=== PATIENT | male | born 1995 | race Caucasian/White ===

== ENCOUNTER 2017-04-25 08:57 | Emergency (ER) | payer MEDICAID ==
[~2017-04-25] VITALS: Ht 182.9 cm; Wt 95.0 kg
[2017-04-25] MEDS ORDERED: LIDOCAINE HCL 1% 20ML VIAL (Pyxis) INJ MC ONE (10:30)
[2017-04-25] MEDS ORDERED: IBUPROFEN 600MG TABLET PO ONE (10:30)
[2017-04-25] MEDS ORDERED: BACITRACIN ZINC OINT UDPKT TOP ONE (11:00)
[2017-04-25 11:15] VITALS: BP 137/84
== END 2017-04-25 11:33 | disposition home or self-care (01) ==
LOC: ER 09:10
DX: M25.532 Pain in left wrist (principal); M25.531 Pain in right wrist; M79.642 Pain in left hand; M79.641 Pain in right hand; M25.551 Pain in right hip; V29.40XA Motorcycle driver injured in collision with unspecified motor vehicles in traffic accident, initial encounter; Y93.55 Activity, bike riding; Y92.89 Other specified places as the place of occurrence of the external cause; Y99.8 Other external cause status
CPT/HCPCS: 73110; 73130; 73502; 99284; J3490